=== PATIENT | male | born 1945 | race Caucasian/White ===

== ENCOUNTER 2018-01-25 13:34 | Observation (INO) | payer MEDICARE, OTHER ==
[~2018-01-25] VITALS: Ht 182.9 cm; Wt 83.9 kg
[2018-01-25 13:36] VITALS: BP 104/51
[2018-01-25 14:12] LABS: HEMATOCRIT 38.7 % (42.0-52.0); HEMOGLOBIN 12.8 gm/dL (14.0-18.0); MCH 29.9 pg (26.0-34.0); MCV 90.6 fL (80.0-100.0); MPV 8.7 fl. (7.2-11.1); NUCLEATED RBCS 0 /100WBC; PLATELET COUNT* 144 thou/uL (150-400); RBC 4.28 mil/uL (4.50-6.00); RDW-CV 14.4 % (10.5-14.5); WBC 9.8 thou/uL (4.0-11.0)
[2018-01-25 14:22] LABS: ANION GAP 9 mmol/L (7-16); BUN 53 mg/dL (7-18); CALCIUM 9.3 mg/dL (8.5-10.1); CHLORIDE 101 mmol/L (98-107); CO2 24 mmol/L (21-32); CREATININE 1.9 mg/dL (0.6-1.3); GLUCOSE 175 mg/dL (70-99); POTASSIUM 3.9 mmol/L (3.5-5.1); SODIUM 134 mmol/L (136-145)
[2018-01-25 14:32] LABS: ALBUMIN 3.1 g/dL (3.4-5.0); ALKALINE PHOSPHATASE 48 U/L (46-116); LIPASE 240 U/L (73-393); SGOT 20 U/L (15-37); SGPT 25 U/L (30-65); TOTAL BILIRUBIN 0.5 mg/dL (<0.1-1.0); TOTAL PROTEIN 6.6 g/dL (6.4-8.2); TROPONIN-I LEVEL <0.06 ng/mL (<0.06)
[2018-01-25 14:59] LABS: ABSOLUTE EOSINOPHILS 0.2 thou/uL (0.0-0.7); ABSOLUTE LYMPHOCYTES 1.4 thou/uL (0.8-5.3); ABSOLUTE MONOCYTES 0.7 thou/uL (0.0-1.2); ABSOLUTE NEUTROPHILS 7.5 thou/uL (1.6-8.1); PLATELET ESTIMATE ADEQUATE
[2018-01-25 15:00] LABS: TOXIC GRANULATION 1+
[2018-01-25] MEDS ORDERED: BUSPIRONE HCL10 MG PO (16:24)
[2018-01-25] MEDS ORDERED: CENTRUM SILVER1 EAC2 PO (16:24)
[2018-01-25] MEDS ORDERED: HYOSCYAMINE0.375 MG PO (16:24)
[2018-01-25] MEDS ORDERED: CALCIUM 500 +1 EAC5 PO (16:24)
[2018-01-25] MEDS ORDERED: LOSARTAN POTAS100 MG PO (16:25)
[2018-01-25] MEDS ORDERED: CELLCEPT500 MG PO (16:25)
[2018-01-25] MEDS ORDERED: ACTOS 30 MG TAB30 MG PO (16:26)
[2018-01-25] MEDS ORDERED: FIBER625 MG PO (16:27)
[2018-01-25] MEDS ORDERED: DELTASONE20 MG PO (16:28)
[2018-01-25] MEDS ORDERED: MESTINON60 MG PO (16:29)
[2018-01-25] MEDS ORDERED: PRESERVISION A1 EAC2 PO (16:29)
[2018-01-25] MEDS ORDERED: SPIRONOLACTONE25 M1 PO (16:52)
[2018-01-25] MEDS ORDERED: ZANTAC 150MG T150 MG PO (16:52)
[2018-01-25 17:40] LABS: URINE BILIRUBIN NEGATIVE (Negative); URINE BLOOD TRACE (Negative); URINE CLARITY CLEAR; URINE COLOR YELLOW; URINE GLUCOSE-RANDOM NEGATIVE (Negative); URINE KETONES NEGATIVE (Negative); URINE LEUKOCYTES-REFLEX NEGATIVE (Negative); URINE NITRITE-REFLEX NEGATIVE (Negative); URINE PROTEIN NEGATIVE (Negative); URINE SPECIFIC GRAVITY 1.015 (1.005-1.030); URINE UROBILINOGEN 0.2 E.U./dl (0.2-1.0)
[2018-01-25 17:48] LABS: BACTERIA-REFLEX None Seen /HPF (None Seen); MUCUS None Seen strn/LPF (None Seen); SQUAMOUS NONE SEEN /LPF (0-3); URINE RBC None Seen /HPF (0-2); URINE WBC-REFLEX None Seen /HPF (0-5)
[2018-01-25 17:49] LABS: CASTS None Seen /LPF (None Seen); CRYSTALS None Seen /LPF (None Seen)
--- NOTE | 2018-01-25 18:15 | EKG ---
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1945 Requested By: Lilliana Sawyer Order Number: [id number] MD: Allen Patino Measurements Intervals [place] Rate: 71 P: 1 SC: 130 QRS: -42 QRSD: 101 T: 79 QT: 364 QTc: 396 Interpretive Statements Sinus rhythm Abnormal R-wave progression, early transition Left ventricular hypertrophy No previous ECG available for comparison Electronically Signed On 01-25-2018 18:15:18 CDT by Allen Patino [email or web address] <ELECTRONICALLY SIGNED> By: Allen Patino MD, [facility] 01/25/18 1815 1340 39 Allen Patino MD, FAC /EPI
[2018-01-25 20:55] VITALS: BP 99/36
[2018-01-25 21:30] VITALS: BP 124/54
[2018-01-26 04:15] VITALS: BP 123/60
[2018-01-26 08:00] VITALS: BP 150/54
[2018-01-26 08:23] LABS: CALCIUM 9.3 mg/dL (8.5-10.1); CREATININE 1.5 mg/dL (0.6-1.3); POTASSIUM 4.1 mmol/L (3.5-5.1)
[2018-01-26 12:00] VITALS: BP 94/55
[2018-01-26 16:00] VITALS: BP 136/43; BP 94/55
--- NOTE | 2018-01-26 17:48 | 2DMMODE ---
[place] [address] 2 D/M-MODE ECHOCARDIOGRAM Name: DESHAWN MAI Room: [address] Maxim Gonzales#: [id number] Admission: 01/25/18 Attend Phys: Carlos Rogers Discharge: Date of : 49 Date of Service: 01/26/18 1747 Report #: [id number] THIS REPORT FOR: //name// APPROVED REPORT Study performed: 01/26/2018 10:26:18 EXAM: Comprehensive 2D, Doppler, and color-flow Echocardiogram Patient Location: In-Patient Room #: [facility] Status: routine BSA: 2.06 HR: 94 bpm BP: 150/54 mmHg Rhythm: NSR Other Information Study Quality: Good Indications Arrhythmia Syncope 2D Dimensions IVSd: 8.59 (7-11mm) LVOT Diam: 20.20 (18-24mm) LVDd: 45.96 mm PWd: 8.96 (7-11mm) Ascending Ao: 31.99 (22-36mm) LVDs: 28.17 (25-40mm) Aortic Root: 34.35 mm Volumes Left Atrial Volume (Systole) LA ESV Index: 14.40 mL/m2 Aortic Valve AoV Peak Kalpesh.: 1.69 m/s AO Peak Gr.: 11.38 mmHg LVOT Max P.29 mmHg AO Mean Gr.: 6.08 mmHg LVOT Mean P.81 mmHg LVOT Max V: 1.44 m/s AO V2 VTI: 27.19 cm LVOT Mean V: 0.89 m/s NELLY (VTI): 2.72 cm2 LVOT V1 VTI: 23.04 cm Mitral Valve E/A Ratio: 1.00 MV Decel. Time: 229.94 [place] [address] 2 D/M-MODE ECHOCARDIOGRAM Name: DESHAWN MAI Room: [address] Christian#: [id number] Admission: 01/25/18 Attend Phys: Carlos Rogers Discharge: Date of : 49 Date of Service: 01/26/18 1747 Report #: [id number] MV E Max Kalpesh.: 0.80 m/s MV PHT: 66.68 ms MVA (PHT): 3.30 cm2 TDI E/Lateral E': 6.15 E/Medial E': 6.67 Medial E' Kalpesh.: 0.12 m/s Lateral E' Kalpesh.: 0.13 m/s Pulmonary Valve PV Peak Kalpesh.: 1.21 m/s PV Peak Gr.: 5.89 mmHg Tricuspid Valve RAP Estimate: 5.00 mmHg TR Peak Gr.: 21.80 mmHg RVSP: 26.00 mmHg PA Pressure: 26.00 mmHg Left Ventricle The left ventricle is normal size. Left ventricular dyssynergy noted consistent with underlying atrial branch block or paced rhythm. There is normal left ventricular wall thickness. Left ventricular systolic function is normal. LVEF is 60-65%. Transmitral Doppler flow pattern suggests impaired LV relaxation. Right Ventricle The right ventricle is normal size. The right ventricular systolic function is normal. Atria The left atrium size is normal. The right atrium size is normal. Aortic Valve The aortic valve is normal in structure. No aortic regurgitation is present. There is no aortic valvular stenosis. Mitral Valve The mitral valve is normal in structure. There is no mitral valve regurgitation noted. No evidence of mitral valve stenosis. Tricuspid Valve The tricuspid valve is normal in structure. Trace tricuspid regurgitation. No pulmonary hypertension. Pulmonic Valve The pulmonary valve is normal in structure. [place] [address] 2 D/M-MODE ECHOCARDIOGRAM Name: DESHAWN MAI [address] [id number] Admission: 01/25/18 Attend Phys: Carlos Rogers Discharge: Date of : 49 Date of Service: 01/26/18 1747 Report #: [id number] valvular regurgitation. Great Vessels The aortic root is normal in size. IVC is normal in size and collapses >50% with inspiration. Pericardium There is no pericardial effusion. <Conclusion> The left ventricle is normal size. There is normal left ventricular wall thickness. Left ventricular systolic function is normal. LVEF is 60-65%. Transmitral Doppler flow pattern suggests impaired LV relaxation. Left ventricular dyssynergy noted consistent with underlying atrial branch block or paced rhythm. Trace tricuspid regurgitation. No pulmonary hypertension. IVC is normal in size and collapses >50% with inspiration. <ELECTRONICALLY SIGNED> By: Allen Patino MD, FACC 01/26/181746 46 46 Allen Patino MD, FACC /INF
== END 2018-01-26 19:15 | disposition home or self-care (01) ==
LOC: M.ERS 13:34 → M.TBA-ER 16:50 → M.2W 16:50
PROVIDERS: Internal Medicine; Physician Assistant; ADMIT Internal Medicine
DX: N17.0 Acute kidney failure with tubular necrosis (principal); E86.9 Volume depletion, unspecified; I95.2 Hypotension due to drugs; J98.11 Atelectasis; G70.00 Myasthenia gravis without (acute) exacerbation; I10 Essential (primary) hypertension; M48.00 Spinal stenosis, site unspecified; E11.9 Type 2 diabetes mellitus without complications; E87.2 Acidosis; R74.0 Nonspecific elevation of levels of transaminase and lactic acid dehydrogenase [LDH]; Z79.899 Other long term (current) drug therapy

== ENCOUNTER 2018-05-03 22:08 | Emergency (ER) | payer MEDICARE, OTHER ==
[~2018-05-03] VITALS: Ht 182.9 cm; Wt 81.7 kg
[~2018-05-03 22:08] MED LIST: ACTOS 30 MG TAB30 MG PO; BUSPIRONE HCL10 MG PO; CALCIUM 500 +1 EAC5 PO; CELLCEPT500 MG PO; CENTRUM SILVER1 EAC2 PO; DELTASONE20 MG PO; FIBER625 MG PO; HYOSCYAMINE0.375 MG PO; LOSARTAN POTAS100 MG PO; MESTINON60 MG PO; PRESERVISION A1 EAC2 PO; SPIRONOLACTONE25 M1 PO; ZANTAC 150MG T150 MG PO
[2018-05-03 23:04] LABS: ANION GAP 5 mmol/L (7-16); BUN 24 mg/dL (7-18); CALCIUM 8.6 mg/dL (8.5-10.1); CHLORIDE 103 mmol/L (98-107); CO2 29 mmol/L (21-32); CREATININE 1.7 mg/dL (0.6-1.3); GLUCOSE 122 mg/dL (70-99); SODIUM 137 mmol/L (136-145)
[2018-05-03 23:07] LABS: ALBUMIN 2.8 g/dL (3.4-5.0); ALKALINE PHOSPHATASE 46 U/L (46-116); SGOT 19 U/L (15-37); SGPT 14 U/L (30-65); TOTAL BILIRUBIN 0.5 mg/dL (<0.1-1.0); TOTAL PROTEIN 5.9 g/dL (6.4-8.2); TROPONIN-I LEVEL <0.06 ng/mL (<0.06)
[2018-05-03 23:13] LABS: ABSOLUTE BASOPHILS 0.1 thou/uL (0.0-0.2); ABSOLUTE EOSINOPHILS 0.1 thou/uL (0.0-0.7); ABSOLUTE LYMPHOCYTES 1.2 thou/uL (0.8-5.3); ABSOLUTE MONOCYTES 0.9 thou/uL (0.0-1.2); ABSOLUTE NEUTROPHILS 8.7 thou/uL (1.6-8.1); BASOPHILS 0.5 %; EOSINOPHILS 0.6 %; HEMATOCRIT 35.8 % (42.0-52.0); HEMOGLOBIN 11.9 gm/dL (14.0-18.0); LYMPHOCYTES 10.9 %; MCH 30.2 pg (26.0-34.0); MCHC 33.2 g/dL (28.0-37.0); MCV 91.1 fL (80.0-100.0); MONOCYTES 7.9 %; MPV 8.8 fl. (7.2-11.1); NUCLEATED RBCS 0 /100WBC; PLATELET COUNT* 151 thou/uL (150-400); POLYS 80.1 %; RBC 3.93 mil/uL (4.50-6.00); RDW-CV 14.6 % (10.5-14.5); WBC 10.9 thou/uL (4.0-11.0)
[2018-05-04] MEDS ORDERED: PIOGLITAZONE15 MG (00:29)
[2018-05-04] MEDS ORDERED: OMEPRAZOLE40 MG (00:30)
[2018-05-04] MEDS ORDERED: ALDACTAZIDE 251 EAC1 (00:35)
[2018-05-04] MEDS ORDERED: PRESERVISION A1 EAC2 (00:37)
[2018-05-04] MEDS ORDERED: OXYCODONE HCL 55 MG (00:41)
[2018-05-04 05:29] LABS: HEMOGLOBIN 11.3 gm/dL (14.0-18.0); NUCLEATED RBCS 0 /100WBC
[2018-05-04 05:32] LABS: HEMATOCRIT 33.6 % (42.0-52.0); MCH 30.4 pg (26.0-34.0); MCHC 33.6 g/dL (28.0-37.0); MCV 90.5 fL (80.0-100.0); MPV 7.9 fl. (7.2-11.1); PLATELET COUNT* 136 thou/uL (150-400); RBC 3.71 mil/uL (4.50-6.00); RDW-CV 14.4 % (10.5-14.5); WBC 8.2 thou/uL (4.0-11.0)
[2018-05-04 06:21] LABS: ABSOLUTE EOSINOPHILS 0.1 thou/uL (0.0-0.7); ABSOLUTE LYMPHOCYTES 1.3 thou/uL (0.8-5.3); ABSOLUTE MONOCYTES 0.7 thou/uL (0.0-1.2); ABSOLUTE NEUTROPHILS 6.1 thou/uL (1.6-8.1); PLATELET ESTIMATE DECREASED
[2018-05-04 06:22] LABS: ANISOCYTOSIS 1+; POIKILOCYTOSIS 1+
[2018-05-04 06:26] VITALS: BP 140/61
[2018-05-04 06:35] LABS: CALCIUM 8.4 mg/dL (8.5-10.1); CREATININE 1.2 mg/dL (0.6-1.3); POTASSIUM 3.9 mmol/L (3.5-5.1)
--- NOTE | 2018-05-04 15:56 | EKG ---
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1945 Requested By: Dina Emery Order Number: [id number] MD: Brendan Herndon Measurements Intervals [place] Rate: 89 P: 26 MO: 155 QRS: -49 QRSD: 103 T: 57 QT: 359 QTc: 437 Interpretive Statements Sinus rhythm Supraventricular bigeminy Left anterior fascicular block Abnormal R-wave progression, early transition Left ventricular hypertrophy Compared to ECG 01/25/2018 13:40:50 Atrial premature complex(es) now present Electronically Signed On 05-04-2018 15:55:51 STATE EPIDEMIOLOGIST by Brendan Herndon [email or web address] <ELECTRONICALLY SIGNED> By: Brendan Herndon MD, [facility] 05/04/18 1555 2226 2226 Brendan Herndon MD, [facility] /EPI
--- NOTE | 2018-05-04 15:57 | EKG ---
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1945 Requested By: Dina Emery Order Number: [id number] Reading MD: Brendan Herndon Measurements Intervals [place] Rate: 95 P: 28 PA: 139 QRS: -46 QRSD: 105 T: 52 QT: 364 QTc: 458 Interpretive Statements Sinus rhythm Supraventricular bigeminy Left anterior fascicular block Abnormal R-wave progression, early transition Left ventricular hypertrophy Compared to ECG 01/25/2018 13:40:50 Atrial premature complex(es) now present Electronically Signed On 05-04-2018 15:56:49 SCRAP DROP CRANE OPERATOR by Brendan Herndon [email or web address] <ELECTRONICALLY SIGNED> By: Brendan Herndon MD, [facility] 05/04/18 1556 0325 0325 Brendan Herndon MD, [facility] /EPI
== END 2018-05-04 06:26 | disposition still patient (30) ==
LOC: M.ERS 22:08
PROVIDERS: Emergency Medicine
DX: R55 Syncope and collapse (principal); I10 Essential (primary) hypertension; E11.9 Type 2 diabetes mellitus without complications